=== PATIENT | male | born 1940 | race Caucasian/White ===

== ENCOUNTER 2017-10-10 15:47 | Inpatient (IN) | payer OTHER, MEDICARE ==
[~2017-10-10] VITALS: Ht 182.9 cm; Wt 102.2 kg
[2017-10-10 16:06] VITALS: BP_SYST 118; BP_SYST 222; BP_DIAS 106; BP_DIAS 108; PULSE 83; RESP 18; TEMP 97.6; O2SAT 99
[2017-10-10 17:05] VITALS: BP_SYST 195; BP_SYST 204; BP_DIAS 100; BP_DIAS 101; PULSE 70; RESP 18
[2017-10-10] MEDS ORDERED: cloNIDine HCL 0.1 MG TAB PO ONE (17:45)
[2017-10-10 17:49] LABS: BASOPHIL # 0.1 TH/MM3 (0-0.2); BASOPHIL % 1.5 % (0.0-2.0); EOSINOPHIL # 0.2 TH/MM3 (0-0.4); EOSINOPHIL % 4.7 % (0.0-4.0); HEMATOCRIT 34.4 % (39.0-51.0); HEMO FLAGS DIFF FINAL; LYMPH % 28.4 % (9.0-44.0); LYMPHOCYTE # 1.5 TH/MM3 (1.0-4.8); MEAN CELL VOLUME 84.1 FL (80.0-100.0); MEAN CORPUSCULAR HGB CONC 32.1 % (32.0-36.0); MONO % 7.5 % (0.0-8.0); NEUT % 57.9 % (16.0-70.0); PLATELET COUNT 247 TH/MM3 (150-450); RED BLOOD COUNT 4.09 MIL/MM3 (4.50-5.90); RED CELL DISTRIBUTION WIDTH 14.2 % (11.6-17.2); WHITE BLOOD COUNT 5.1 TH/MM3 (4.0-11.0)
[2017-10-10 18:05] LABS: ALT (GPT) 17 U/L (12-78); ANION GAP 8 MEQ/L (5-15); AST (GOT) 11 U/L (15-37); BICARBONATE 28.3 MEQ/L (21.0-32.0); BLOOD UREA NITROGEN 14 MG/DL (7-18); CHLORIDE 103 MEQ/L (98-107); GLOMERULAR FILTRATION RATE 47 ML/MIN (>89); SODIUM (NA) 139 MEQ/L (136-145)
[2017-10-10 18:06] LABS: ACETAMINOPHEN LESS THAN 2.0 MCG/ML (10.0-30.0)
[2017-10-10 18:07] LABS: ALCOHOL LESS THAN 3 MG/DL (0-5); ALKALINE PHOSPHATASE 138 U/L (45-117); TOTAL BILIRUBIN ADULT 0.3 MG/DL (0.2-1.0)
[2017-10-10] MEDS ORDERED: INSULIN HUMAN REGULAR 1,000 UNITS/10 ML VIAL SQ ONE (18:30)
--- NOTE | 2017-10-10 18:33 | PD ---
HPI Chief Complaint: Psychiatric Symptoms Time Seen by Provider: 16:44 Travel History International Travel<30 days: No Contact w/Intl Traveler<30days: No Traveled to known affect area: No History of Present Illness HPI 77-year-old male presents to the emergency department under [place] act. He has history of major depression and attempted suicide 3 weeks ago by cutting his wrist. He reports being suicidal at this time and his plan is to "crashed my car." He was brought in because he is concerned that he is unable to keep himself safe. He's been having ongoing suicidal ideations. Denies homicidal ideations. Denies auditory or visual hallucinations. Takes Effexor for depression. Denies illicit drug use, tobacco use, alcohol use. Has no emergent medical complaints at this time. Denies chest pain, shortness of breath, abdominal pain. Allergies to penicillins. Reports not taking his medications for the past few days for his high blood pressure and diabetes. No known relieving or aggravating factors. Has no other medical complaints. No other modifying factors or associated signs and symptoms. PFSH Past Medical History Hx Anticoagulant Therapy: Yes (aspirin) Arthritis: Yes Depression: Yes Heart Rhythm Problems: Yes (atrial fibrillation) Cardiovascular Problems: Yes (atrial fibrillation) Dementia: Yes Diabetes: Yes Patient Takes Glucophage: No Diminished Hearing: Yes (hearing aids bilaterally) Hypertension: Yes Respiratory: Yes (sleep apnea) Tetanus Vaccination: Unknown Influenza Vaccination: Yes Social History Alcohol Use: No Tobacco Use: No Substance Use: No Allergies-Medications (Allergen,Severity, Reaction): Coded Allergies: Penicillins (Verified Allergy, Intermediate, Edema, 10/10/17) Review of Systems Except as stated in HPI: all other systems reviewed are Neg Physical Exam Narrative GENERAL: Well-nourished, well-developed male patient, in no acute distress SKIN: Warm and dry. HEAD: Atraumatic. Normocephalic. EYES: Pupils equal and round. ENT: Mucosa pink and moist. NECK: Supple. Trachea midline. CARDIOVASCULAR: Irregular rate and rhythm. No murmur appreciated. RESPIRATORY: No accessory muscle use. Clear to auscultation. Breath sounds equal bilaterally. GASTROINTESTINAL: Abdomen soft, non-tender, nondistended. Hepatic and splenic margins not palpable. Bowel sounds are active 4 quadrants. MUSCULOSKELETAL: No obvious deformities. No clubbing. No cyanosis. No edema. BACK: No CVA tenderness. NEUROLOGICAL: Awake and alert. Oriented 3. No obvious cranial nerve deficits. Motor grossly within normal limits. Normal speech. Moves all extremities. 5/5 strength to all extremities. PSYCHIATRIC: No delusional thought processes. No hallucinations. Data Data Last Documented VS Vital Signs Date Time Temp Pulse Resp B/P (MAP) Pulse Ox O2 Delivery O2 Flow Rate FiO2 10/10/17 17:05 204/101 (135) 195/100 (131) 10/10/17 16:06 97.6 83 18 99 Room Air Orders Orders Diet Diabetic (10/10/17 Dinner) Complete Blood Count With Diff (10/10/17 16:46) Comprehensive Metabolic Panel (10/10/17 16:46) Psych Screen (10/10/17 16:46) Drug Screen, Random Urine (10/10/17 16:46) Alcohol (Ethanol) (10/10/17 16:46) Salicylates (Aspirin) (10/10/17 16:46) Tylenol (Acetaminophen) (10/10/17 16:46) Clonidine (Catapres) (10/10/17 17:45) Insulin Human Regular Inj (Novolin R Inj (10/10/17 18:30) Labs Laboratory Tests Test 10/10/17 17:07 10/10/17 17:15 White Blood Count 5.1 TH/MM3 Red Blood Count 4.09 MIL/MM3 Hemoglobin 11.0 GM/DL Hematocrit 34.4 % Mean Corpuscular Volume 84.1 FL Mean Corpuscular Hemoglobin 27.0 PG Mean Corpuscular Hemoglobin Concent 32.1 % Red Cell Distribution Width 14.2 % Platelet Count 247 TH/MM3 Mean Platelet Volume 7.5 FL Neutrophils (%) (Auto) 57.9 % Lymphocytes (%) (Auto) 28.4 % Monocytes (%) (Auto) 7.5 % Eosinophils (%) (Auto) 4.7 % Basophils (%) (Auto) 1.5 % Neutrophils # (Auto) 3.0 TH/MM3 Lymphocytes # (Auto) 1.5 TH/MM3 Monocytes # (Auto) 0.4 TH/MM3 Eosinophils # (Auto) 0.2 TH/MM3 Basophils # (Auto) 0.1 TH/MM3 CBC Comment DIFF FINAL Differential Comment Blood Urea Nitrogen 14 MG/DL Creatinine 1.45 MG/DL Random Glucose 392 MG/DL Total Protein 7.5 GM/DL Albumin 3.7 GM/DL Calcium Level 8.9 MG/DL Alkaline Phosphatase 138 U/L Aspartate Amino Transf (AST/SGOT) 11 U/L Alanine Aminotransferase (ALT/SGPT) 17 U/L Total Bilirubin 0.3 MG/DL Sodium Level 139 MEQ/L Potassium Level 4.0 MEQ/L Chloride Level 103 MEQ/L Carbon Dioxide Level 28.3 MEQ/L Anion Gap 8 MEQ/L Estimat Glomerular Filtration Rate 47 ML/MIN Salicylates Level LESS THAN 1.7 MG/DL Acetaminophen Level LESS THAN 2.0 MCG/ML Ethyl Alcohol Level LESS THAN 3 MG/DL Urine Opiates Screen NEG Urine Barbiturates Screen NEG Urine Amphetamines Screen NEG Urine Benzodiazepines Screen NEG Urine Cocaine Screen NEG Urine Cannabinoids Screen NEG MDM Medical Decision Making Medical Screen Exam Complete: Yes Emergency Medical Condition: Yes Medical Record Reviewed: Yes Differential Diagnosis Medical clearance for psychiatric evaluation, suicidal ideation, suicidal threat , depression Narrative Course Patient presents under [place] act. Patient has history of hypertension and diabetes. 1700: Blood pressure continues to be elevated; Clonidine 0.1mg ordered for elevated blood pressure. 1833: Serum glucose 392: 10 units regular insulin ordered. Patient presents under a [place] act. Physical examination and vital signs are essentially unremarkable. Patient has no medical complaints to report. Psych screen has been ordered. If the laboratory results are unremarkable, the patient will be medically cleared for psychiatric evaluation and disposition. Diagnosis Primary Impression: Medical clearance for psychiatric admission Condition: Stable Dalia Velasquez Oct 10, 2017 18:33
[2017-10-10] MEDS ORDERED: LANTUS2P (19:40)
[2017-10-10] MEDS ORDERED: LOSA50TA PO (19:40)
[2017-10-10] MEDS ORDERED: METO25TA3 PO (19:40)
[2017-10-10] MEDS ORDERED: XARE20TA PO (19:40)
[2017-10-10] MEDS ORDERED: MIRA3350 PO (19:40)
[2017-10-10] MEDS ORDERED: TERA5CAP3 PO (19:40)
[2017-10-10] MEDS ORDERED: LOVA20TA PO (19:40)
[2017-10-10] MEDS ORDERED: IRON1TAB6 (19:40)
[2017-10-10] MEDS ORDERED: MULT-65 PO (19:40)
[2017-10-10] MEDS ORDERED: VENL75XR PO (19:40)
[2017-10-10] MEDS ORDERED: VICT18IN SQ (19:40)
[2017-10-10] MEDS ORDERED: LISI40TA PO (19:40)
[2017-10-10] MEDS ORDERED: HUMA100I3 SQ (19:46)
[2017-10-10] MEDS ORDERED: hydrOXYzine HCL 50 MG TAB PO PRN (21:15)
[2017-10-10] MEDS ORDERED: DEXTROSE 50% IN WATER 50 ML VIAL(D50) IV PUSH PRN (21:15)
[2017-10-10] MEDS ORDERED: ALUMINUM/MAGNESIUM/SIMETH 30 ML CUP PO PRN (21:15)
[2017-10-10] MEDS ORDERED: MAGNESIUM HYDROXIDE SUSP 30 ML CUP PO PRN (21:15)
[2017-10-10] MEDS ORDERED: GLUCAGON 1 MG/ML VIAL OTHER PRN (21:15)
[2017-10-10] MEDS ORDERED: NICOTINE 21 MG/24 HR PATCH T-DERMAL PRN (21:15)
[2017-10-10] MEDS ORDERED: cloNIDine HCL 0.1 MG TAB PO PRN (21:30)
[2017-10-10 22:07] VITALS: BP 145/72; PULSE 57; RESP 17; TEMP 98.1; O2SAT 98
[2017-10-10] MEDS ORDERED: INSULIN ASPART 1,000 UNITS/10 ML VIAL SQ ONE (22:45)
[2017-10-10] MEDS ORDERED: hydrOXYzine HCL 25 MG TAB PO PRN (22:45)
[2017-10-10 22:55] VITALS: BP 167/82; PULSE 70; RESP 17; TEMP 98.1; O2SAT 98
[2017-10-11] MEDS: ACETAMINOPHEN 325 MG TAB PO PRN (05:45)
[2017-10-11 06:48] VITALS: BP 191/79; PULSE 56; RESP 18; TEMP 97.8; O2SAT 99
[2017-10-11 07:39] VITALS: BP 157/86; PULSE 88
[2017-10-11] MEDS: INSULIN ASPART SUPPLEMENTAL SCALE SQ SCH ×4 (08:00→22:07)
[2017-10-11 08:05] LABS: AUTOMATED NEUTROPHIL # 5.1 TH/MM3 (1.8-7.7); BASOPHIL # 0.1 TH/MM3 (0-0.2); BASOPHIL % 1.1 % (0.0-2.0); EOSINOPHIL # 0.3 TH/MM3 (0-0.4); EOSINOPHIL % 4.3 % (0.0-4.0); HEMATOCRIT 30.3 % (39.0-51.0); HEMO FLAGS DIFF FINAL; LYMPH % 21.1 % (9.0-44.0); LYMPHOCYTE # 1.6 TH/MM3 (1.0-4.8); MEAN CELL VOLUME 81.9 FL (80.0-100.0); MEAN CORPUSCULAR HEMOGLOBIN 28.8 PG (27.0-34.0); MEAN CORPUSCULAR HGB CONC 35.1 % (32.0-36.0); MONO % 7.4 % (0.0-8.0); NEUT % 66.1 % (16.0-70.0); PLATELET COUNT 236 TH/MM3 (150-450); RED BLOOD COUNT 3.69 MIL/MM3 (4.50-5.90); RED CELL DISTRIBUTION WIDTH 13.7 % (11.6-17.2); WHITE BLOOD COUNT 7.7 TH/MM3 (4.0-11.0)
[2017-10-11 08:36] LABS: ANION GAP 8 MEQ/L (5-15); AST (GOT) 12 U/L (15-37); BICARBONATE 26.8 MEQ/L (21.0-32.0); BLOOD UREA NITROGEN 16 MG/DL (7-18); CHLORIDE 104 MEQ/L (98-107); GLOMERULAR FILTRATION RATE 53 ML/MIN (>89); POTASSIUM 3.8 MEQ/L (3.5-5.1); SODIUM (NA) 139 MEQ/L (136-145)
[2017-10-11] MEDS: REMOVE OLD NICODERM (NICOTINE) PATCH T-DERMAL SCH (09:00)
[2017-10-11] MEDS: RIVAROXABAN 20 MG TAB PO SCH (09:00)
[2017-10-11] MEDS ORDERED: NON-FORMULARY DRUG (Lisinopril 40 MG) PO SCH (09:00)
[2017-10-11] MEDS ORDERED: NON-FORMULARY DRUG (Multiple Vitamin (Multi-Vitamin Daily) 1 TAB) PO SCH (09:00)
[2017-10-11 09:07] LABS: ALKALINE PHOSPHATASE 116 U/L (45-117); ALT (GPT) 17 U/L (12-78); HDL CHOLESTEROL 45.2 MG/DL (40.0-60.0); LDL CHOLESTEROL 97 MG/DL (0-99); TOTAL BILIRUBIN ADULT 0.4 MG/DL (0.2-1.0)
[2017-10-11] MEDS: TERAZOSIN HCL 5 MG CAP PO SCH (09:31)
[2017-10-11] MEDS: MULTIVITAMIN TAB PO SCH (09:31)
[2017-10-11] MEDS: LISINOPRIL 20 MG TAB PO SCH (09:31)
[2017-10-11] MEDS: METOPROLOL TARTRATE 25 MG TAB PO SCH ×2 (09:31→20:36)
[2017-10-11] MEDS: LOSARTAN 50 MG TAB PO SCH (09:31)
[2017-10-11] MEDS: POLYETHYLENE GLYCOL 17 GM PKG PO SCH (09:32)
[2017-10-11] MEDS: PRAVASTATIN SOD 20 MG TAB PO SCH (09:32)
[2017-10-11 11:28] LABS: HEMOGLOBIN A1a 2.3 %; HEMOGLOBIN A1b 2.5 %; HEMOGLOBIN Ao 77.4 %; HEMOGLOBIN LA1C 2.9 %; HEMOGLOBIN P3 5.5 %
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
--- NOTE | 2017-10-11 13:30 | PD.CONS ---
HPI Service [facility] Hospitalists Consult Requested By Primary Care Physician Unknown Diagnoses: History of Present Illness Admission Notes: This is a pleasant 77 y/o Male who came to ER as Ilir Ely, with history of Depression and attempted suicide 3 weeks ago by cutting his wrist. He reports being suicidal at this time and his plan is to "crashed my car." He was brought in because he is concerned that he is unable to keep himself safe. He's been having ongoing suicidal ideations. Denies homicidal ideations. Denied auditory or visual hallucinations. Takes Effexor for depression. Denies illicit drug use, tobacco use, alcohol use. Has no emergent medical complaints at this time. Denies chest pain, shortness of breath, abdominal pain. Allergies to penicillins. Reports not taking his medications for the past few days for his high blood pressure and diabetes. No known relieving or aggravating factors. Has no other medical complaints. No other modifying factors or associated signs and symptoms. As we know the patient has OA, Depression, Atrial Fibrillation, Dementia, DM II , Hard of hearing, Review of Systems Constitutional: DENIES: Fever, Chills, Change in appetite Endocrine: DENIES: Heat/cold intolerance Eyes: DENIES: Blurred vision, Eye pain Except as stated in HPI: all other systems reviewed are Neg Past Family Social History Allergies: Coded Allergies: Penicillins (Verified Allergy, Intermediate, Edema, 10/10/17) Past Medical History OA Depression Atrial Fibrillation Dementia DM II Hard of hearing, Reported Medications Reported Meds & Active Scripts Active Reported Humalog Kwikpen Pen Inj (Insulin Lispro (Human) Inj) 300 Unit/3 Ml Pen 1 Units SQ Victoza Inj (Liraglutide Inj) 18 Mg/3 Ml Pen 1.9 Mg SQ DAILY Lisinopril 40 Mg Tab 40 Mg PO DAILY Effexor XR 24 HR (Venlafaxine HCl) 75 Mg Cap 175 Mg PO DAILY Xarelto (Rivaroxaban) 20 Mg Tab 20 Mg PO DAILY Metoprolol Tartrate 25 Mg Tab 25 Mg PO BID Lovastatin 20 Mg Tab 20 Mg PO DAILY Miralax Powder (Polyethylene Glycol 3350 Powder) 17 Gm Powd 17 Gm PO DAILY Mix and dissolve one measuring cap-ful (17 grams) in water or juice. Multi-Vitamin Daily (Multiple Vitamin) 1 Tab Tab 1 Tab PO DAILY Losartan (Losartan Potassium) 50 Mg Tab 50 Mg PO DAILY Fe C Tab Plus 100-250-0.025-1 mg (Iron-Vitamin C-Vitamin B12-Fol) 100 Mg-250 Mg- 25 Mcg-1 Mg Tab DAILY Terazosin (Terazosin HCl) 5 Mg Cap 5 Mg PO DAILY Lantus Inj (Insulin Glargine) 100 Unit/Ml Inj HS Active Ordered Medications Current Medications Medications (Trade) Dose Ordered Sig/Robert Route Start Time Stop Time Status Last Admin (Cozaar) 50 mg DAILY PO 10/11/17 09:00 10/11/17 09:31 (Pravachol) 20 mg DAILY PO 10/11/17 09:00 10/11/17 09:32 (Lopressor) 25 mg BID PO 10/11/17 09:00 10/11/17 09:31 (Miralax) 17 gm DAILY PO 10/11/17 09:00 10/11/17 09:32 (Xarelto) 20 mg DAILY PO 10/11/17 09:00 10/11/17 09:00 (Hytrin) 5 mg DAILY PO 10/11/17 09:00 10/11/17 09:31 Non-Formulary Medication 1.9 mg DAILY SQ 10/11/17 09:00 UNV (D50w (Vial) Inj) 50 ml UNSCH PRN IV PUSH 10/10/17 21:15 (Glucagon Inj) 1 mg UNSCH PRN OTHER 10/10/17 21:15 (NovoLOG SUPPLEMENTAL SCALE) 1 ACHS SLIDING SCALE SQ 10/11/17 08:00 10/11/17 10:58 (Tylenol) 650 mg Q4H PRN PO 10/10/17 21:15 10/11/17 05:45 (Milk Of Magnesia Liq) 30 ml DAILY PRN PO 10/10/17 21:15 (Mag-Al Plus Susp Liq) 30 ml Q6H PRN PO 10/10/17 21:15 (Habitrol 21 Mg Patch.24 Hr) 1 patch DAILY PRN T-DERMAL 10/10/17 21:15 (Catapres) 0.1 mg Q8HR PRN PO 10/10/17 21:30 10/11/17 05:42 (Prinivil) 40 mg DAILY PO 10/11/17 09:00 10/11/17 09:31 Miscellaneous Information 1 DAILY T-DERMAL 10/11/17 09:00 (Theragran) 1 tab DAILY PO 10/11/17 09:00 10/11/17 09:31 (Atarax) 25 mg Q6H PRN PO 10/10/17 22:45 (Remeron) 15 mg HS PO 10/11/17 21:00 (Vitamin D3) 2,000 units DAILY PO 10/12/17 09:00 Social History Denies any toxic habits. Physical Exam Vital Signs Vital Signs Date Time Temp Pulse Resp B/P (MAP) Pulse Ox O2 Delivery O2 Flow Rate FiO2 10/11/17 07:39 88 157/86 (109) 10/11/17 06:48 97.8 56 18 191/79 (116) 99 10/10/17 22:55 98.1 70 17 167/82 (110) 98 10/10/17 22:33 10/10/17 22:07 98.1 57 17 145/72 (96) 98 10/10/17 17:05 70 18 204/101 (135) 195/100 (131) 10/10/17 16:06 97.6 83 18 222/106 (144) 99 Room Air 118/108 (111) Physical Exam GENERAL: This is a well-nourished, well-developed patient, in no apparent distress. SKIN: No rashes, ecchymoses or lesions. Cool and dry. HEAD: Atraumatic. Normocephalic. No temporal or scalp tenderness. EYES: Pupils equal round and reactive. Extraocular motions intact. No scleral icterus. No injection or drainage. ENT: Nose without bleeding, purulent drainage or septal hematoma. Throat without erythema, tonsillar hypertrophy or exudate. Uvula midline. Airway patent. NECK: Trachea midline. No JVD or lymphadenopathy. Supple, nontender, no meningeal signs. CARDIOVASCULAR: Regular rate and rhythm without murmurs, gallops, or rubs. RESPIRATORY: Clear to auscultation. Breath sounds equal bilaterally. No wheezes , rales, or rhonchi. GASTROINTESTINAL: Abdomen soft, non-tender, nondistended. No hepato-splenomegaly , or palpable masses. No guarding. MUSCULOSKELETAL: Extremities without clubbing, cyanosis, or edema. No joint tenderness, effusion, or edema noted. No calf tenderness. Negative Homans sign bilaterally. NEUROLOGICAL: Awake and alert. Cranial nerves II through XII intact. Motor and sensory grossly within normal limits. Five out of 5 muscle strength in all muscle groups. Normal speech. Laboratory Laboratory Tests Test 10/10/17 17:07 10/10/17 17:15 10/11/17 07:25 White Blood Count 5.1 7.7 Red Blood Count 4.09 3.69 Hemoglobin 11.0 10.6 Hematocrit 34.4 30.3 Mean Corpuscular Volume 84.1 81.9 Mean Corpuscular Hemoglobin 27.0 28.8 Mean Corpuscular Hemoglobin Concent 32.1 35.1 Red Cell Distribution Width 14.2 13.7 Platelet Count 247 236 Mean Platelet Volume 7.5 7.7 Neutrophils (%) (Auto) 57.9 66.1 Lymphocytes (%) (Auto) 28.4 21.1 Monocytes (%) (Auto) 7.5 7.4 Eosinophils (%) (Auto) 4.7 4.3 Basophils (%) (Auto) 1.5 1.1 Neutrophils # (Auto) 3.0 5.1 Lymphocytes # (Auto) 1.5 1.6 Monocytes # (Auto) 0.4 0.6 Eosinophils # (Auto) 0.2 0.3 Basophils # (Auto) 0.1 0.1 CBC Comment DIFF FINAL DIFF FINAL Differential Comment Blood Urea Nitrogen 14 16 Creatinine 1.45 1.31 Random Glucose 392 231 Total Protein 7.5 6.6 Albumin 3.7 3.2 Calcium Level 8.9 8.4 Alkaline Phosphatase 138 116 Aspartate Amino Transf (AST/SGOT) 11 12 Alanine Aminotransferase (ALT/SGPT) 17 17 Total Bilirubin 0.3 0.4 Sodium Level 139 139 Potassium Level 4.0 3.8 Chloride Level 103 104 Carbon Dioxide Level 28.3 26.8 Anion Gap 8 8 Estimat Glomerular Filtration Rate 47 53 Salicylates Level LESS THAN 1.7 Acetaminophen Level LESS THAN 2.0 Ethyl Alcohol Level LESS THAN 3 Urine Opiates Screen NEG Urine Barbiturates Screen NEG Urine Amphetamines Screen NEG Urine Benzodiazepines Screen NEG Urine Cocaine Screen NEG Urine Cannabinoids Screen NEG Hemoglobin A1c 8.9 Triglycerides Level 157 Cholesterol Level 174 LDL Cholesterol 97 HDL Cholesterol 45.2 Cholesterol/HDL Ratio 3.84 Vitamin B12 Level 366 25-Hydroxy Vitamin D Total 20.4 Thyroid Stimulating Hormone 3rd Gen 0.698 Result Diagram: 10/11/1725 10/11/1725 Mohamud lOivo MD Oct 11, 2017 13:30
[2017-10-11] MEDS: amLODIPine BESYLATE 5 MG TAB PO SCH (17:00)
[2017-10-11] MEDS: MIRTAZAPINE 15 MG TAB PO SCH (20:36)
[2017-10-11] MEDS: INSULIN DETEMIR 100 UNITS/ML VIAL SQ SCH (22:07)
[2017-10-12 05:00] VITALS: BP 137/94; PULSE 82; RESP 20; TEMP 98.5; O2SAT 98
[2017-10-12] MEDS: INSULIN ASPART SUPPLEMENTAL SCALE SQ SCH ×4 (08:00→21:00)
[2017-10-12] MEDS ORDERED: CHOLECALCIFEROL (VIT D3) 1000 UNIT TAB PO SCH (09:00)
[2017-10-12] MEDS: LIRAGLUTIDE SQ SCH (09:00)
[2017-10-12] MEDS: INSULIN DETEMIR 100 UNITS/ML VIAL SQ SCH ×2 (09:00→21:11)
[2017-10-12] MEDS ORDERED: HYDROCHLOROTHIAZIDE 12.5 MG CAP PO SCH (09:00)
[2017-10-12] MEDS: REMOVE OLD NICODERM (NICOTINE) PATCH T-DERMAL SCH (09:00)
[2017-10-12] MEDS: LISINOPRIL 20 MG TAB PO SCH (09:36)
[2017-10-12] MEDS: TERAZOSIN HCL 5 MG CAP PO SCH (09:36)
[2017-10-12] MEDS: CHOLECALCIFEROL (VIT D3) 1000 UNIT TAB PO SCH (09:36)
[2017-10-12] MEDS: MULTIVITAMIN TAB PO SCH (09:36)
[2017-10-12] MEDS: PRAVASTATIN SOD 20 MG TAB PO SCH (09:36)
[2017-10-12] MEDS: amLODIPine BESYLATE 5 MG TAB PO SCH (09:37)
[2017-10-12] MEDS: RIVAROXABAN 20 MG TAB PO SCH (09:37)
[2017-10-12] MEDS: METOPROLOL TARTRATE 25 MG TAB PO SCH ×2 (09:37→21:11)
[2017-10-12] MEDS: LOSARTAN 50 MG TAB PO SCH (09:37)
[2017-10-12] MEDS: POLYETHYLENE GLYCOL 17 GM PKG PO SCH (09:38)
--- NOTE | 2017-10-12 09:55 | PD.TTN ---
Patient Problems 1. Discharge planning 2. Medication compliance 3. Knowledge deficit 4. Lack of coping skills Progress Toward Goals Provider Present: Dr. Ayesha Rubin Provider Input: Dr. Rubin's treatment team met to discuss patient's treatment plan, discharge and medication. Patient was started on medication for his depressioin. Once patient stablizes will be discharged home. OT evaluation has been ordered. Nurse(s) Input: Patient's nurse Any reports patient is seclusive, depressed, denies suicidal and homicidal ideation. experiencing sleep distrubance. Slow to engage. No behavioral issues Psychiatric Counselors Present: Cara Gauthier [facility] Psych Therapist Input: Patient seen today. Patient presents depressed, sad, affect appropriate. Patient states he is still suicidal. Patient denies homicidal ideation. Patient makes fair eye contact. Patient reports not sleeping well. Patient is slow to engage and was encouraged to get a shower. Patient is not participating in any groups. Patient does not present with internal stimulation or with any delusional content. [facility]. pateint was encourage to participate in groups and to reach out to his family. Group Spec/RT/OT/CHRISTIANSON Present: Sean Pereira, SAMY Group Spec/RT/OT/CHRISTIANSON Input: Patient is new. Patient has complex personnal issues. Has OT evaluation ordered. Patient attends groups. Cara Gauthier [facility] Oct 12, 2017 09:55
--- NOTE | 2017-10-12 10:51 | HHI.PR ---
Subjective Remarks Follow up on patient with atrial fibrillation, DM and dementia. Patient seen and examined. Patient denies any chest pain, palpitations, dizziness or lightheadedness. He denies any dyspnea or cough. Denies any nausea, vomiting or abdominal pain. Objective Vitals Vital Signs Date Time Temp Pulse Resp B/P (MAP) Pulse Ox O2 Delivery O2 Flow Rate FiO2 10/12/17 05:00 98.5 82 20 137/94 (108) 98 Result Diagram: 10/11/1772410/11/17724 Objective Remarks GENERAL: This is a well-nourished, well-developed male patient, in no apparent distress. Awake and alert. Lying in hospital bed. SKIN: Warm and dry. HEAD: Atraumatic. Normocephalic. EYES: Extraocular motions intact. No scleral icterus. No injection or drainage. ENT: Nose without bleeding or purulent drainage. Airway patent. MMM. NECK: Trachea midline. CARDIOVASCULAR: Regular rate and rhythm without murmurs, gallops, or rubs. RESPIRATORY: Clear to auscultation. Breath sounds equal bilaterally. No wheezes , rales, or rhonchi. GASTROINTESTINAL: Abdomen soft, non-tender, nondistended. No hepato-splenomegaly , or palpable masses. No guarding. MUSCULOSKELETAL: Extremities without clubbing or cyanosis. (+)trace bilateral LE edema. NEUROLOGICAL: Awake and alert. Able to move all extremities. Nonfocal. Normal speech. PSYCHIATRIC: Appropriate mood and affect. Calm and cooperative. Medications and IVs Current Medications Medications (Trade) Dose Ordered Sig/Robert Route Start Time Stop Time Status Last Admin (Cozaar) 50 mg DAILY PO 10/11/17 09:00 10/12/17 09:37 (Pravachol) 20 mg DAILY PO 10/11/17 09:00 10/12/17 09:36 (Lopressor) 25 mg BID PO 10/11/17 09:00 10/12/17 09:37 (Miralax) 17 gm DAILY PO 10/11/17 09:00 10/12/17 09:38 (Xarelto) 20 mg DAILY PO 10/11/17 09:00 10/12/17 09:37 (Hytrin) 5 mg DAILY PO 10/11/17 09:00 10/12/17 09:36 Patient Own Medication PT OWN MED: (Liraglutide ... DAILY SQ 10/12/17 09:00 (D50w (Vial) Inj) 50 ml UNSCH PRN IV PUSH 10/10/17 21:15 (Glucagon Inj) 1 mg UNSCH PRN OTHER 10/10/17 21:15 (Tylenol) 650 mg Q4H PRN PO 10/10/17 21:15 10/11/17 05:45 (Milk Of Magnesia Liq) 30 ml DAILY PRN PO 10/10/17 21:15 (Mag-Al Plus Susp Liq) 30 ml Q6H PRN PO 10/10/17 21:15 (Habitrol 21 Mg Patch.24 Hr) 1 patch DAILY PRN T-DERMAL 10/10/17 21:15 (Catapres) 0.1 mg Q8HR PRN PO 10/10/17 21:30 10/11/17 05:42 (Prinivil) 40 mg DAILY PO 10/11/17 09:00 10/12/17 09:36 Miscellaneous Information 1 DAILY T-DERMAL 10/11/17 09:00 (Theragran) 1 tab DAILY PO 10/11/17 09:00 10/12/17 09:36 (Atarax) 25 mg Q6H PRN PO 10/10/17 22:45 (Remeron) 15 mg HS PO 10/11/17 21:00 10/11/17 20:36 (Microzide) 12.5 mg DAILY PO 10/12/17 09:00 10/12/17 09:37 (Norvasc) 5 mg DAILY PO 10/11/17 17:00 10/12/17 09:37 (NovoLOG SUPPLEMENTAL SCALE) 1 ACHS SLIDING SCALE SQ 10/11/17 21:00 10/12/17 11:32 (Levemir Inj) 10 units Q12HR SQ 10/11/17 21:00 10/12/17 09:00 (Vitamin D3) 2,000 units DAILY PO 10/12/17 09:00 10/12/17 09:36 A/P Assessment and Plan 77 y/o Male who came to ER as Hazel Act, with history of Depression and attempted suicide 3 weeks ago by cutting his wrist mid with ongoing suicidal ideations asked to be seen in consultation by hospitalist service for medical management of osteoarthritis, atrial fibrillation and diabetes. Dementia Depression Suicidal ideation - Management per psychiatric team Atrial fibrillation - rate controlled - Continue patient on metoprolol 25 mg by mouth twice a day and Xarelto 20mg daily - monitor HR Hypertension - Continue patient on Lisinopril 40mg daily, Norvasc 5mg daily, as well as metoprolol as stated above - Discontinue Losartan - continue to monitor BP and adjust treatment accordingly FAUSTINA on suspected CKD - unknown creatinine baseline - d/c HCTZ, may need to hold ACEI - encourage fluid intake - avoid nephrotoxic agents - may need to consider decreased Xarelto dose - BMP in am DM, type 2 - accucheck and medium ISS - BS low 300. Increase Levemir to 15u BID - HgbA1c 8.9 Vitamin D deficiency - Patient's vitamin D level 20.4 - Begin patient on by mouth vitamin D supplementation - patient will need to follow up with PCP for monitoring DVT prophylaxis - patient is ambulatory Discussed with patient, nursing staff and Milla Rincon Oct 12, 2017 10:51
--- NOTE | 2017-10-12 12:49 | HHI.PYPN ---
Subjective Chief Complaint: Depression Remarks Patient seen and examined with nurse. Chart reviewed. Case discussed in treatment team with counselor and occupational therapist. Per nursing staff, patient remains somewhat seclusive and depressed. On my examination today, the patient says that he is not having a good day. He remains fairly dysphoric and anhedonic. He denies any suicidal ideation. Sleep fair overnight. Denies side effects from medications. Complains of generalized musculoskeletal pain, chronic. No other physical complaints. Review of Systems Except as stated in HPI: all other systems reviewed are Neg Mental Status Examination Appearance: Disheveled (somewhat improved today) Consciousness: Alert Orientation: x4 Motor Activity: Normal gait, Other (remains a little bit psychomotor slowed) Speech: Slow (mild) Language: Adequate Fund of Knowledge: Adequate Attention and Concentration: Adequate Memory: Impaired (perhaps some mild impairment. Registration 3 out of 3 and recall 2 out of 3 at 3 minutes. Current president = "Ever" and gives the list of preceding presidents as Garry then Ashraf.) Mood: Other (depressed) Affect: Blunt Thought Process & Associations: Other (somewhat slowed but linear) Thought Content: Appropriate Hallucination Type: None Delusion Type: None Suicidal Ideation: No Suicidal Plan: No Suicidal Intention: No Homicidal Ideation: No Homicidal Plan: No Homicidal Intention: No Insight: Fair Judgment: Adequate (fair) Results Labs Item Value Date Time White Blood Count 7.7 TH/MM3 # 10/11/17 0725 Hemoglobin 10.6 GM/DL L 10/11/17 0725 Platelet Count 236 TH/MM3 10/11/17 0725 Estimat Glomerular Filtration Rate 53 ML/MIN L 10/11/17 0725 25-Hydroxy Vitamin D Total 20.4 ng/ML L 10/11/17 0725 Thyroid Stimulating Hormone 3rd Gen 0.698 uIU/ML 10/11/17 0725 Vitamin B12 Level 366 PG/ML 10/11/17 0725 Labs reviewed. Anemia fairly stable. GFR somewhat improved. TSH within normal limits as is B12. Vitamin D level low and the patient has been started on supplement. Vitals/IOs Vital Signs Date Time Temp Pulse Resp B/P (MAP) Pulse Ox O2 Delivery O2 Flow Rate FiO2 10/12/17 05:00 98.5 82 20 137/94 (108) 98 10/10/17 16:06 Room Air Assessment & Plan Problem List: (1) Major depressive disorder, recurrent severe without psychotic features ICD Codes: F33.2 - Major depressive disorder, recurrent severe without psychotic features Assessment & Plan Continue Remeron as ordered for low mood. To consider titrating this agent to 30 mg at bedtime over the weekend. Continue to monitor on the inpatient unit. I have encouraged participation in unit activities and groups. Hospitalist input noted and appreciated. Continue other medications and care as ordered. Justification for Cont. Inpt. Monitoring for impairment in safety, none noted. Risk for decompensation in less restrictive environment. Discharge Planning Plan for home with outpatient follow-up, likely middle or end of next week. Case discussed with counselor. Request HC Surrog/Guard Advoc?: No Aayush Rubin MD Oct 12, 2017 12:49
[2017-10-12 17:35] VITALS: BP 156/70; PULSE 81; RESP 20; TEMP 93.5; O2SAT 98
[2017-10-12] MEDS: MIRTAZAPINE 15 MG TAB PO SCH (21:11)
[2017-10-13 06:03] VITALS: BP 118/69; PULSE 99; RESP 18; TEMP 98.7; O2SAT 95
[2017-10-13] MEDS: INSULIN ASPART SUPPLEMENTAL SCALE SQ SCH ×4 (08:00→21:47)
[2017-10-13] MEDS: INSULIN ASPART 1,000 UNITS/10 ML VIAL SQ SCH ×3 (08:00→16:18)
[2017-10-13] MEDS: REMOVE OLD NICODERM (NICOTINE) PATCH T-DERMAL SCH (09:00)
[2017-10-13] MEDS ORDERED: LISINOPRIL 20 MG TAB PO SCH (09:00)
[2017-10-13] MEDS: LIRAGLUTIDE SQ SCH (09:00)
[2017-10-13] MEDS: CHOLECALCIFEROL (VIT D3) 1000 UNIT TAB PO SCH (09:17)
[2017-10-13] MEDS: POLYETHYLENE GLYCOL 17 GM PKG PO SCH (09:17)
[2017-10-13] MEDS: METOPROLOL TARTRATE 25 MG TAB PO SCH ×2 (09:17→21:00)
[2017-10-13] MEDS: MULTIVITAMIN TAB PO SCH (09:17)
[2017-10-13] MEDS: PRAVASTATIN SOD 20 MG TAB PO SCH (09:18)
[2017-10-13] MEDS: TERAZOSIN HCL 5 MG CAP PO SCH (09:18)
[2017-10-13] MEDS: amLODIPine BESYLATE 5 MG TAB PO SCH (09:18)
[2017-10-13] MEDS: RIVAROXABAN 20 MG TAB PO SCH (09:18)
[2017-10-13] MEDS: INSULIN DETEMIR 100 UNITS/ML VIAL SQ SCH (09:23)
--- NOTE | 2017-10-13 11:22 | HHI.PR ---
Subjective Remarks Follow up on patient with atrial fibrillation, DM and dementia. Patient seen and examined. Patient reports he doesn't feel "worth a darn" but does not give any specifics. Denies any fever, chills or cough. Denies any dizziness, lightheadedness, palpitations, nausea, vomiting, shortness of breath, chest pain or abdominal pain. Objective Vitals Vital Signs Date Time Temp Pulse Resp B/P (MAP) Pulse Ox O2 Delivery O2 Flow Rate FiO2 10/13/17 06:03 98.7 99 18 118/69 (85) 95 10/12/17 17:35 93.5 81 20 156/70 (98) 98 I/O 10/12/17 10/12/17 10/12/17 10/13/17 10/13/17 10/13/17 06:59 14:59 22:59 06:59 14:59 22:59 Intake Total 360 ml Balance 360 ml Intake Oral 360 ml Result Diagram: 10/11/1772410/11/17724 Objective Remarks GENERAL: This is a well-nourished, well-developed male patient, in no apparent distress. Awake and alert. Lying in hospital bed. SKIN: Warm and dry. HEAD: Atraumatic. Normocephalic. EYES: Extraocular motions intact. No scleral icterus. No injection or drainage. ENT: Nose without bleeding or purulent drainage. Airway patent. MMM. NECK: Trachea midline. CARDIOVASCULAR: Regular rate and rhythm without murmurs, gallops, or rubs. RESPIRATORY: Clear to auscultation. Breath sounds equal bilaterally. No wheezes , rales, or rhonchi. GASTROINTESTINAL: Abdomen soft, non-tender, nondistended. No hepato-splenomegaly , or palpable masses. No guarding. MUSCULOSKELETAL: Extremities without clubbing or cyanosis. (+)trace bilateral LE edema. NEUROLOGICAL: Awake and alert. Able to move all extremities. Nonfocal. Normal speech. PSYCHIATRIC: Calm and cooperative. Medications and IVs Current Medications Medications (Trade) Dose Ordered Sig/Robert Route Start Time Stop Time Status Last Admin (Pravachol) 20 mg DAILY PO 10/11/17 09:00 10/13/17 09:18 (Lopressor) 25 mg BID PO 10/11/17 09:00 10/13/17 09:17 (Miralax) 17 gm DAILY PO 10/11/17 09:00 10/13/17 09:17 (Xarelto) 20 mg DAILY PO 10/11/17 09:00 10/13/17 09:18 (Hytrin) 5 mg DAILY PO 10/11/17 09:00 10/13/17 09:18 Patient Own Medication PT OWN MED: (Liraglutide ... DAILY SQ 10/12/17 09:00 (D50w (Vial) Inj) 50 ml UNSCH PRN IV PUSH 10/10/17 21:15 (Glucagon Inj) 1 mg UNSCH PRN OTHER 10/10/17 21:15 (Tylenol) 650 mg Q4H PRN PO 10/10/17 21:15 10/11/17 05:45 (Milk Of Magnesia Liq) 30 ml DAILY PRN PO 10/10/17 21:15 (Mag-Al Plus Susp Liq) 30 ml Q6H PRN PO 10/10/17 21:15 (Habitrol 21 Mg Patch.24 Hr) 1 patch DAILY PRN T-DERMAL 10/10/17 21:15 (Catapres) 0.1 mg Q8HR PRN PO 10/10/17 21:30 10/11/17 05:42 Miscellaneous Information 1 DAILY T-DERMAL 10/11/17 09:00 (Theragran) 1 tab DAILY PO 10/11/17 09:00 10/13/17 09:17 (Atarax) 25 mg Q6H PRN PO 10/10/17 22:45 10/12/17 21:11 (Remeron) 15 mg HS PO 10/11/17 21:00 10/12/17 21:11 (Norvasc) 5 mg DAILY PO 10/11/17 17:00 10/13/17 09:18 (NovoLOG SUPPLEMENTAL SCALE) 1 ACHS SLIDING SCALE SQ 10/11/17 21:00 10/12/17 21:00 (Vitamin D3) 2,000 units DAILY PO 10/12/17 09:00 10/13/17 09:17 (Prinivil) 40 mg DAILY PO 10/13/17 09:00 10/13/17 09:18 (Levemir Inj) 15 units Q12HR SQ 10/12/17 21:00 10/13/17 09:23 (NovoLOG INJ) 2 units TIDAC SQ 10/13/17 08:00 A/P Assessment and Plan 77 y/o Male who came to ER as Ilir Ely, with history of Depression and attempted suicide 3 weeks ago by cutting his wrist mid with ongoing suicidal ideations asked to be seen in consultation by hospitalist service for medical management of osteoarthritis, atrial fibrillation and diabetes. Dementia Depression Suicidal ideation - Management per psychiatric team - encouraged ambulation. PT with no home PT recommendations. Atrial fibrillation - rate controlled - Continue patient on metoprolol 25 mg by mouth twice a day and Xarelto 20mg daily - monitor HR Hypertension - Patient on Lisinopril 40mg daily, Norvasc 5mg daily, as well as metoprolol as stated above. Hold ACEI due to FAUSTINA. increase Norvasc dose to 10mg daily. - continue to monitor BP and adjust treatment accordingly FAUSTINA on suspected CKD - unknown creatinine baseline - Hold ACEI - encourage fluid intake - avoid nephrotoxic agents - may need to consider decreased Xarelto dose - BMP in am/labs pending DM, type 2 - accucheck and low dose ISS - BS running 330s. Increase Levemir to 20u BID. Add preprandial Novolog 2u TID. - HgbA1c 8.9 Vitamin D deficiency - Patient's vitamin D level 20.4 - Begin patient on by mouth vitamin D supplementation - patient will need to follow up with PCP for monitoring DVT prophylaxis - patient is ambulatory - on Xarelto Discussed with patient, nursing staff and Milla Rincon Oct 13, 2017 11:22
[2017-10-13 11:52] LABS: BICARBONATE 26.6 MEQ/L (21.0-32.0)
--- NOTE | 2017-10-13 14:07 | HHI.PYPN ---
Subjective Chief Complaint: Depression Remarks Patient was seen and case discussed with nursing. Patient is pleasant but quite guarded and hypoverbal. Instead of answering questions patient makes various jokes. He denies suicidal or homicidal ideation intent or plan. He was seen in the dayroom and appears to be more social on the unit. Says he was irritable today because she could not get a donut Mental Status Examination Appearance: Disheveled (somewhat improved today) Consciousness: Alert Orientation: x4 Motor Activity: Normal gait, Other (remains a little bit psychomotor slowed) Speech: Slow (mild) Language: Adequate Fund of Knowledge: Adequate Attention and Concentration: Adequate Memory: Impaired (perhaps some mild impairment. Registration 3 out of 3 and recall 2 out of 3 at 3 minutes. Current president = "Eevr" and gives the list of preceding presidents as Garry then Ashraf.) Mood: Other (depressed) Affect: Blunt Thought Process & Associations: Other (somewhat slowed but linear) Thought Content: Appropriate Hallucination Type: None Delusion Type: None Suicidal Ideation: No Suicidal Plan: No Suicidal Intention: No Homicidal Ideation: No Homicidal Plan: No Homicidal Intention: No Insight: Fair Judgment: Adequate (fair) Results Labs Test 10/13/17 09:57 Blood Urea Nitrogen 26 MG/DL Creatinine 1.54 MG/DL Random Glucose 324 MG/DL Calcium Level 8.6 MG/DL Sodium Level 138 MEQ/L Potassium Level 4.0 MEQ/L Chloride Level 104 MEQ/L Carbon Dioxide Level 26.6 MEQ/L Anion Gap 7 MEQ/L Estimat Glomerular Filtration Rate 44 ML/MIN Vitals/IOs Vital Signs Date Time Temp Pulse Resp B/P (MAP) Pulse Ox O2 Delivery O2 Flow Rate FiO2 10/13/17 06:03 98.7 99 18 118/69 (85) 95 10/10/17 16:06 Room Air Intake and Output 10/13/17 10/13/17 10/14/17 08:00 16:00 00:00 Intake Total 360 ml Balance 360 ml Assessment & Plan Problem List: (1) Major depressive disorder, recurrent severe without psychotic features ICD Codes: F33.2 - Major depressive disorder, recurrent severe without psychotic features Assessment & Plan Continue current treatment plan Justification for Cont. Inpt. Patient would decompensate in a less restrictive setting Request HC Surrog/Guard Advoc?: No Addison Sr DO Oct 13, 2017 14:07
[2017-10-13 18:30] VITALS: BP 139/62; PULSE 76; RESP 18; TEMP 98.7; O2SAT 98
[2017-10-13] MEDS ORDERED: INSULIN DETEMIR 100 UNITS/ML VIAL SQ SCH (21:00)
[2017-10-13] MEDS: MIRTAZAPINE 15 MG TAB PO SCH (21:46)
[2017-10-14 06:03] VITALS: BP 147/70; PULSE 72; RESP 17; TEMP 98.2; O2SAT 96
[2017-10-14] MEDS: LIRAGLUTIDE SQ SCH (07:07)
--- NOTE | 2017-10-14 07:36 | HHI.PR ---
Subjective Remarks Patient appears not in acute distress. He says he feels tired as nausea unable to eat. No urinary complaints no fever or chills. No abdominal pain. No back pains. Objective Vitals Vital Signs Date Time Temp Pulse Resp B/P (MAP) Pulse Ox O2 Delivery O2 Flow Rate FiO2 10/14/17 06:03 98.2 72 17 147/70 (95) 96 10/13/17 18:30 98.7 76 18 139/62 (87) 98 I/O 10/13/17 10/13/17 10/13/17 10/14/17 10/14/17 10/14/17 07:00 15:00 23:00 07:00 15:00 23:00 Intake Total 746 ml 0 ml Balance 746 ml 0 ml Intake Oral 746 ml 0 ml # Voids 1 # Bowel Movements 0 Result Diagram: 10/11/17 0725 10/13/17 0957 Objective Remarks GENERAL: This is a well-nourished, well-developed male patient, in no apparent distress. Awake and alert. Lying in hospital bed. CARDIOVASCULAR: Regular rate and rhythm without murmurs, gallops, or rubs. RESPIRATORY: Clear to auscultation. Breath sounds equal bilaterally. No wheezes , rales, or rhonchi. GASTROINTESTINAL: Abdomen soft, non-tender, nondistended. No hepato-splenomegaly , or palpable masses. No guarding. MUSCULOSKELETAL: Extremities without clubbing or cyanosis. (+)trace bilateral LE edema. NEUROLOGICAL: Awake and alert. Able to move all extremities. Nonfocal. Normal speech. PSYCHIATRIC: Calm and cooperative. A/P Assessment and Plan 77 y/o Male who came to ER as [place], with history of Depression and attempted suicide 3 weeks ago by cutting his wrist mid with ongoing suicidal ideations asked to be seen in consultation by hospitalist service for medical management of osteoarthritis, atrial fibrillation and diabetes. Dementia Depression Suicidal ideation - Management per psychiatric team - encouraged ambulation. PT with no home PT recommendations. Atrial fibrillation - rate controlled - Continue patient on metoprolol 25 mg by mouth twice a day and Xarelto 20mg daily - monitor HR Hypertension - Patient on Lisinopril 40mg daily, Norvasc 5mg daily, as well as metoprolol as stated above. Hold ACEI due to FAUSTINA. increase Norvasc dose to 10mg daily. - continue to monitor BP and adjust treatment accordingly FAUSTINA on suspected CKD. However noted worsening kidney function. Check UA, do US kidney, consult nephrology - unknown creatinine baseline - Hold ACEI - encourage fluid intake - avoid nephrotoxic agents - may need to consider decreased Xarelto dose DM, type 2, uncontrolled A1c 8.9 - accucheck and low dose ISS - BS running 200s. Increase Levemir to 22U BID. Continue preprandial Novolog 2u TID. - HgbA1c 8.9 Vitamin D deficiency - Patient's vitamin D level 20.4 - Begin patient on by mouth vitamin D supplementation - patient will need to follow up with PCP for monitoring DVT prophylaxis - patient is ambulatory - on Xarelto Discussed with patient, nurse Kesha Lopez MD Oct 14, 2017 07:36
[2017-10-14] MEDS: INSULIN ASPART SUPPLEMENTAL SCALE SQ SCH ×4 (08:00→20:52)
[2017-10-14] MEDS: RIVAROXABAN 20 MG TAB PO SCH (08:07)
[2017-10-14] MEDS: CHOLECALCIFEROL (VIT D3) 1000 UNIT TAB PO SCH (08:08)
[2017-10-14] MEDS: TERAZOSIN HCL 5 MG CAP PO SCH (08:08)
[2017-10-14] MEDS: INSULIN DETEMIR 100 UNITS/ML VIAL SQ SCH ×2 (08:08→20:52)
[2017-10-14] MEDS: POLYETHYLENE GLYCOL 17 GM PKG PO SCH (08:08)
[2017-10-14] MEDS: METOPROLOL TARTRATE 25 MG TAB PO SCH ×2 (08:08→20:51)
[2017-10-14] MEDS: PRAVASTATIN SOD 20 MG TAB PO SCH (08:08)
[2017-10-14] MEDS: MULTIVITAMIN TAB PO SCH (08:08)
[2017-10-14] MEDS: REMOVE OLD NICODERM (NICOTINE) PATCH T-DERMAL SCH (08:09)
[2017-10-14 10:12] LABS: BICARBONATE 26.7 MEQ/L (21.0-32.0)
[2017-10-14 10:13] LABS: BLOOD, URINE NEG (NEG); COMMENT (UR) CULT NOT INDICATED; CULTURE IF INDICATED CULT NOT INDICATED; GLUCOSE,URINE 1000 mg/dL (NEG); KETONE, URINE NEG (NEG); MUCUS URINE FEW /lpf (OCC); NITRITE,URINE NEG (NEG); PH, URINE 5.5 (5.0-8.5); URINE COLOR YELLOW (YELLW/STRAW)
--- NOTE | 2017-10-14 10:45 | RADRPT ---
EXAM DATE/TIME: 10/14/2017 08:29 [facility] COMPARISON: No previous studies available for comparison. INDICATIONS : Increased BUN/creatinine. MEDICAL HISTORY : Dementia. Arthritis. Seizures. HTN. Afib. Sleep apena. Diabetes. Depression. SURGICAL HISTORY : Right ankle surgery. Right rotator cuff repair. ENCOUNTER: Initial ACUITY: 1 day PAIN SCORE: 0/10 LOCATION: Bilateral flank MEASUREMENTS: RIGHT KIDNEY: 11.6 x 6.3 x 5.2 cm LEFT KIDNEY: 13.1 x 6.1 x 6.7 cm COMPLETE APPROPRIATE ITEMS PRE PROCEDURE: ID x 2: Complete NameDate of BirthPatient Name Band Education: Nurse/Technologist explained procedure to patient/family. Patient/family demonstrates understanding of procedure. FINDINGS: RIGHT KIDNEY: Increased cortical echogenicity. Multiple renal cortical cysts with the largest in the lower pole chace suring 4.3 x 3.9 x 3.5 cm. LEFT KIDNEY: Increased cortical echogenicity. Multiple renal cortical cyst on the largest in the lower pole measur ing 5.8 x 6.6 x 6.3 cm BLADDER: Within normal limits given the degree of distension. CONCLUSION: 1. Increased cortical echogenicity with preserved size may be indicative of acute medical renal disea se bilaterally. 2. Multiple bilateral renal cortical cysts with the largest cysts on each side described above. 3. Otherwise negative. No stones or hydronephrosis. Tenzin Domingo MD on October 14, 2017 at 10:38 Board Certified Radiologist. This report was verified electronically.
--- NOTE | 2017-10-14 12:01 | MB ---
cc: AALIYAH GUTIERREZ MD DATE OF CONSULTATION: 10/14/2017 REASON FOR CONSULTATION: Elevated BUN and creatinine for evaluation. HISTORY OF PRESENT ILLNESS This is a 77-year-old male with past medical history of depression, hypertension, hyperlipidemia and diabetes mellitus, prostatic hypertrophy, possibly chronic kidney disease, was admitted with a diagnosis of depression in the psych unit. I was called to see the patient because of elevated BUN and creatinine. The patient denies any known history of renal disease. His creatinine on admission was 1.45, range is 1.3 to 1.5. He denies any nausea or vomiting. There is no history of diarrhea. No dysuria, hematuria. He does not remember if he was taking any nonsteroidal anti-inflammatory drugs. There is no history of renal stone. PAST MEDICAL HISTORY Hypertension, diabetes mellitus, hyperlipidemia, prostatic hypertrophy, possible chronic kidney disease. PAST SURGICAL HISTORY None reported. REVIEW OF SYSTEMS There is no history of fever. No sore throat. No headache, dizziness or blurring of vision. The patient's appetite is not very good. He does not have any nausea, vomiting. No history of diarrhea. No dysuria, hematuria or difficulty passing urine. SOCIAL HISTORY There is no history of smoking or alcoholism. FAMILY HISTORY: Noncontributory. ALLERGIES ALLERGY TO PENICILLIN. MEDICATIONS Currently he is on: 1. Metoprolol 25 mg b.i.d. 2. Pravastatin 20 mg once a day. 3. MiraLax 17 grams daily. 4. Xarelto 20 milligrams daily. 5. Prazosin 5 milligrams once a day. 6. Theragran one tablet daily. 7. Vitamin D3 2000 units once a day. 8. Amlodipine 10 milligrams once a day. 9. Amiodarone 15 milligrams q hs. 10. Insulin Detemir 22 units q.12 h. 11. Insulin aspart sliding scale. 12. Nicotine patch. 13. Clonidine as needed. PHYSICAL EXAMINATION: The patient is awake, alert. He is not in acute distress. Last blood pressure 140/70. His blood pressure was quite elevated on admission, temperature is 98.2, oxygen saturation 96%. HEENT: Pupils are mid constricted. Nonicteric. Conjunctiva pale. Neck: Supple. JVD is not elevated. Lungs: The patient has bilateral good air entry with occasional wheezing. Heart: S1-S2, regular rhythm. Abdomen is soft, lax, there is no tenderness. Bowel sounds positive. Extremities: There is no pedal edema. INVESTIGATIONS: WBC count is 7.7, hemoglobin 10.6, platelet count 236. Sodium 139, potassium 4.0, chloride 104, bicarb 26.7, BUN 36, creatinine 1.5, calcium is 8.8. Urinalysis showing protein of 30. Toxicology screen was negative on admission. Ultrasound of the kidney was done today and shows both kidneys are normal in size, increased cortical echogenicity, multiple bilateral renal cyst. No stone hydronephrosis. ASSESSMENT/PLAN 1. Chronic kidney disease 2. Hypertension 3. Depression 4. Diabetes mellitus 5. Mild anemia The patient has possible history of chronic kidney disease with bilateral renal cyst, normal-size kidney and minimal proteinuria, could be related to hypertensive or diabetic renal disease. He is not in fluid overload status, potassium is normal. Blood pressure is now better controlled. I will check his phosphorus with the next blood test, avoid any nephrotoxins, continue the same medications. Thank you for the consultation. I will follow the patient while he is in the hospital. MD ESPERANZA Brown/ASHLEY /11:02 AM /11:31 AM
--- NOTE | 2017-10-14 14:04 | HHI.PYPN ---
Subjective Chief Complaint: Depression Remarks Pt was seen and case discussed with nursing. Pt is enjoying this side of the hospital. He is less sarcastic today, he describes a depressed mood with passive suicidal ideation. However, not feeling hopeless, remains quite vague. Mental Status Examination Appearance: Disheveled (somewhat improved today) Consciousness: Alert Orientation: x4 Motor Activity: Normal gait, Other (remains a little bit psychomotor slowed) Speech: Slow (mild) Language: Adequate Fund of Knowledge: Adequate Attention and Concentration: Adequate Memory: Impaired (perhaps some mild impairment. Registration 3 out of 3 and recall 2 out of 3 at 3 minutes. Current president = "Ever" and gives the list of preceding presidents as Garry then Ashraf.) Mood: Sad, Other (depressed) Affect: Sad Thought Process & Associations: Other (somewhat slowed but linear) Thought Content: Appropriate Hallucination Type: None Delusion Type: None Suicidal Ideation: Yes (passive) Suicidal Plan: No Suicidal Intention: No Homicidal Ideation: No Homicidal Plan: No Homicidal Intention: No Insight: Fair Judgment: Adequate (fair) Results Labs Test 10/14/17 08:02 10/14/17 09:42 Blood Urea Nitrogen 26 MG/DL Creatinine 1.51 MG/DL Random Glucose 212 MG/DL Calcium Level 8.8 MG/DL Sodium Level 139 MEQ/L Potassium Level 4.0 MEQ/L Chloride Level 104 MEQ/L Carbon Dioxide Level 26.7 MEQ/L Anion Gap 8 MEQ/L Estimat Glomerular Filtration Rate 45 ML/MIN Urine Color YELLOW Urine Turbidity CLEAR Urine pH 5.5 Urine Specific [place] 1.008 Urine Protein 30 mg/dL Urine Glucose (UA) 1000 mg/dL Urine Ketones NEG mg/dL Urine Occult Blood NEG Urine Nitrite NEG Urine Bilirubin NEG Urine Urobilinogen LESS THAN 2.0 MG/DL Urine Leukocyte Esterase NEG Urine WBC LESS THAN 1 /hpf Urine Mucus FEW /lpf Microscopic Urinalysis Comment CULT NOT INDICATED Vitals/IOs Vital Signs Date Time Temp Pulse Resp B/P (MAP) Pulse Ox O2 Delivery O2 Flow Rate FiO2 10/14/17 06:03 98.2 72 17 147/70 (95) 96 10/10/17 16:06 Room Air Intake and Output 10/14/17 10/14/17 10/15/17 08:00 16:00 00:00 Intake Total 120 ml 240 ml Balance 120 ml 240 ml Assessment & Plan Problem List: (1) Major depressive disorder, recurrent severe without psychotic features ICD Codes: F33.2 - Major depressive disorder, recurrent severe without psychotic features Assessment & Plan Continue current treatment plan. Justification for Cont. Inpt. Patient would decompensate in a less restrictive setting. Request HC Surrog/Guard Advoc?: No Addison Sr DO Oct 14, 2017 14:04
[2017-10-14 18:00] VITALS: BP 137/60; PULSE 79; RESP 18; TEMP 98; O2SAT 99
[2017-10-14] MEDS: MIRTAZAPINE 15 MG TAB PO SCH (20:51)
[2017-10-15 06:26] VITALS: BP 148/69; PULSE 68; RESP 20; TEMP 97.6; O2SAT 97
[2017-10-15] MEDS: INSULIN ASPART SUPPLEMENTAL SCALE SQ SCH ×4 (08:00→21:00)
[2017-10-15] MEDS: TERAZOSIN HCL 5 MG CAP PO SCH (08:27)
[2017-10-15] MEDS: POLYETHYLENE GLYCOL 17 GM PKG PO SCH (08:27)
[2017-10-15] MEDS: METOPROLOL TARTRATE 25 MG TAB PO SCH ×2 (08:27→21:33)
[2017-10-15] MEDS: PRAVASTATIN SOD 20 MG TAB PO SCH (08:27)
[2017-10-15] MEDS: CHOLECALCIFEROL (VIT D3) 1000 UNIT TAB PO SCH (08:27)
[2017-10-15] MEDS: LIRAGLUTIDE SQ SCH (08:28)
[2017-10-15] MEDS: REMOVE OLD NICODERM (NICOTINE) PATCH T-DERMAL SCH (08:28)
[2017-10-15] MEDS: MULTIVITAMIN TAB PO SCH (08:28)
[2017-10-15] MEDS: INSULIN DETEMIR 100 UNITS/ML VIAL SQ SCH ×2 (08:28→21:36)
[2017-10-15] MEDS: RIVAROXABAN 20 MG TAB PO SCH (08:28)
[2017-10-15] MEDS: ACETAMINOPHEN 325 MG TAB PO PRN (08:37)
--- NOTE | 2017-10-15 10:44 | HHI.PYPN ---
Subjective Chief Complaint: Depression Remarks Patient seen and examined with nurse. Chart reviewed. Case discussed with nurse who reports the patient remains somewhat dysphoric and continues to articulate some passive thoughts of at times. On my examination today, the patient reports that he remains depressed although his mood is improved versus prior to admission. He does indeed admit to some occasional passive thoughts of but denies any active suicidal ideation. No psychotic symptoms. Sleep is somewhat poor, but the patient is noted to spend a fair amount of time dozing during the day; increased activity during daytime encouraged. Denies side effects from medications. Complains of chronic musculoskeletal pain, most prominent at the base of neck and shoulders. Review of Systems Except as stated in HPI: all other systems reviewed are Neg Mental Status Examination Appearance: Appropriate Consciousness: Alert Orientation: x4 Motor Activity: Other (no motoric abnormalities noted, perhaps a little psychomotor slowed still) Speech: Unremarkable Language: Adequate Fund of Knowledge: Adequate Attention and Concentration: Adequate Memory: Unremarkable Mood: Other (depressed, improving slowly) Affect: Blunt Thought Process & Associations: Other (somewhat slowed but linear) Thought Content: Appropriate Hallucination Type: None Delusion Type: None Suicidal Ideation: No Suicidal Plan: No Suicidal Intention: No Homicidal Ideation: No Homicidal Plan: No Homicidal Intention: No Insight: Fair Judgment: Adequate (fair) Results Labs Item Value Date Time Sodium Level 139 MEQ/L 10/14/17 0802 Potassium Level 4.0 MEQ/L 10/14/17 0802 Chloride Level 104 MEQ/L 10/14/17 0802 Carbon Dioxide Level 26.7 MEQ/L 10/14/17 0802 Blood Urea Nitrogen 26 MG/DL H 10/14/17 0802 Creatinine 1.51 MG/DL H 10/14/17 0802 Estimat Glomerular Filtration Rate 45 ML/MIN L 10/14/17 0802 Random Glucose 212 MG/DL H # 10/14/17 0802 Phosphorus Level 3.4 MG/DL 10/15/17 0811 Last Impressions Renal Ultrasound 10/14/17 0000 Signed Impressions: Service Date/Time: Saturday, October 14, 2017 08:29 - CONCLUSION: 1. Increased cortical echogenicity with preserved size may be indicative of acute medical renal disease bilaterally. 2. Multiple bilateral renal cortical cysts with the largest cysts on each side described above. 3. Otherwise negative. No stones or hydronephrosis. Tenzin Domingo MD Labs and study impression reviewed. Vitals/IOs Vital Signs Date Time Temp Pulse Resp B/P (MAP) Pulse Ox O2 Delivery O2 Flow Rate FiO2 10/15/17 06:26 97.6 68 20 148/69 (95) 97 Intake and Output 10/15/17 10/15/17 10/16/17 08:00 16:00 00:00 Intake Total 120 ml Balance 120 ml Assessment & Plan Problem List: (1) Major depressive disorder, recurrent severe without psychotic features ICD Codes: F33.2 - Major depressive disorder, recurrent severe without psychotic features Assessment & Plan Mood is slowly improving with mirtazapine. Titrate mirtazapine to 30 mg at bedtime for mood. Hospitalist and nephrology input noted and appreciated. Continue to monitor on the inpatient unit. Continue other medications and care as ordered. Justification for Cont. Inpt. Med changes. Risk for decompensation in less restrictive environment. Discharge Planning Anticipate discharge by the end of the week. Request HC Surrog/Guard Advoc?: No Aayush Rubin MD Oct 15, 2017 10:44
[2017-10-15] MEDS: LIDOCAINE HCL 5% PATCH T-DERMAL SCH (11:00)
--- NOTE | 2017-10-15 17:14 | HHI.PR ---
Objective Vitals Vital Signs Date Time Temp Pulse Resp B/P (MAP) Pulse Ox O2 Delivery O2 Flow Rate FiO2 10/15/17 06:26 97.6 68 20 148/69 (95) 97 10/14/17 18:00 98.0 79 18 137/60 (85) 99 I/O 10/14/17 10/14/17 10/14/17 10/15/17 10/15/17 10/15/17 07:00 15:00 23:00 07:00 15:00 23:00 Intake Total 240 ml 360 ml 840 ml 120 ml Output Total 2 ml Balance 240 ml 360 ml 838 ml 120 ml Intake Oral 240 ml 360 ml 840 ml 120 ml Output Urine Total 2 ml # Voids 1 2 # Bowel Movements 0 Result Diagram: 10/11/17 0725 10/14/17 0802 Baldev Kingsley MD Oct 15, 2017 17:14
[2017-10-15 18:05] VITALS: BP 125/58; PULSE 57; RESP 18; TEMP 97.8; O2SAT 97
--- NOTE | 2017-10-15 20:35 | HHI.PR ---
Subjective Remarks Patient c/o back pain in the right lower side of his back. Denies cp/sob. Denies dysuria, hematuria. Worst with movement, he is unable to sit well. Nurse states he has not complained of back pain to her. denies urine or bowel incontinence Blood sugars uncontrolled. Objective Vitals Vital Signs Date Time Temp Pulse Resp B/P (MAP) Pulse Ox O2 Delivery O2 Flow Rate FiO2 10/15/17 18:05 97.8 57 18 125/58 (80) 97 10/15/17 06:26 97.6 68 20 148/69 (95) 97 I/O 10/14/17 10/14/17 10/14/17 10/15/17 10/15/17 10/15/17 07:00 15:00 23:00 07:00 15:00 23:00 Intake Total 240 ml 360 ml 840 ml 120 ml 720 ml Output Total 2 ml Balance 240 ml 360 ml 838 ml 120 ml 720 ml Intake Oral 240 ml 360 ml 840 ml 120 ml 720 ml Output Urine Total 2 ml # Voids 1 2 2 # Bowel Movements 0 Result Diagram: 10/11/17 0725 10/14/17 0802 Imaging Last Impressions Renal Ultrasound 10/14/17 0000 Signed Impressions: Service Date/Time: Saturday, October 14, 2017 08:29 - CONCLUSION: 1. Increased cortical echogenicity with preserved size may be indicative of acute medical renal disease bilaterally. 2. Multiple bilateral renal cortical cysts with the largest cysts on each side described above. 3. Otherwise negative. No stones or hydronephrosis. Tenzin Domingo MD Objective Remarks AAO, nad Clear lungs Pain on palpation of right paraspinal muscles on the lumbar region. Muscle strength 5/5 in all extremities with intact sensation. Patellar reflexes +2 in BL lower extremities. Medications and IVs Current Medications Medications (Trade) Dose Ordered Sig/Robert Route Start Time Stop Time Status Last Admin (Pravachol) 20 mg DAILY PO 10/11/17 09:00 10/15/17 08:27 (Lopressor) 25 mg BID PO 10/11/17 09:00 10/15/17 08:27 (Miralax) 17 gm DAILY PO 10/11/17 09:00 10/15/17 08:27 (Xarelto) 20 mg DAILY PO 10/11/17 09:00 10/15/17 08:28 (Hytrin) 5 mg DAILY PO 10/11/17 09:00 10/15/17 08:27 Patient Own Medication PT OWN MED: (Liraglutide ... DAILY SQ 10/12/17 09:00 (D50w (Vial) Inj) 50 ml UNSCH PRN IV PUSH 10/10/17 21:15 (Glucagon Inj) 1 mg UNSCH PRN OTHER 10/10/17 21:15 (Tylenol) 650 mg Q4H PRN PO 10/10/17 21:15 10/15/17 08:37 (Milk Of Magnesia Liq) 30 ml DAILY PRN PO 10/10/17 21:15 (Mag-Al Plus Susp Liq) 30 ml Q6H PRN PO 10/10/17 21:15 (Habitrol 21 Mg Patch.24 Hr) 1 patch DAILY PRN T-DERMAL 10/10/17 21:15 (Catapres) 0.1 mg Q8HR PRN PO 10/10/17 21:30 10/11/17 05:42 Miscellaneous Information 1 DAILY T-DERMAL 10/11/17 09:00 (Theragran) 1 tab DAILY PO 10/11/17 09:00 10/15/17 08:28 (Atarax) 25 mg Q6H PRN PO 10/10/17 22:45 10/12/17 21:11 (Vitamin D3) 2,000 units DAILY PO 10/12/17 09:00 10/15/17 08:27 (Prinivil) 40 mg DAILY PO 10/13/17 09:00 Future Hold 10/13/17 09:18 (NovoLOG INJ) 2 units TIDAC SQ 10/13/17 08:00 Future Hold 10/13/17 16:18 (NovoLOG SUPPLEMENTAL SCALE) 1 ACHS SLIDING SCALE SQ 10/13/17 12:00 10/15/17 17:00 (Norvasc) 10 mg DAILY PO 10/14/17 09:00 10/15/17 08:27 (Levemir Inj) 22 units Q12HR SQ 10/14/17 09:00 10/15/17 08:28 (Remeron) 30 mg HS PO 10/15/17 21:00 (Lidoderm 5% Patch.12 Hr) 1 patch DAILY T-DERMAL 10/15/17 11:00 10/15/17 11:00 Miscellaneous Information 1 Q24H T-DERMAL 10/15/17 21:00 A/P Assessment and Plan 77 y/o Male who came to ER as [place], with history of Depression and attempted suicide 3 weeks ago by cutting his wrist mid with ongoing suicidal ideations asked to be seen in consultation by hospitalist service for medical management of osteoarthritis, atrial fibrillation and diabetes. Dementia Depression Suicidal ideation - Management per psychiatric team - encouraged ambulation. PT with no home PT recommendations. Atrial fibrillation - rate controlled - Continue patient on metoprolol 25 mg by mouth twice a day and Xarelto 20mg daily - monitor HR Hypertension - Patient on Lisinopril 40mg daily, Norvasc 5mg daily, as well as metoprolol as stated above. RAFAEL Inhibitor held due to FAUSTINA. Norvasc dose increased to 10 mg daily. - continue to monitor BP and adjust treatment accordingly - 10/15 BP stable, continue management as above. FAUSTINA on suspected CKD. However noted worsening kidney function. Check UA, do US kidney, consult nephrology - unknown creatinine baseline - Hold ACEI - encourage fluid intake - avoid nephrotoxic agents - may need to consider decreased Xarelto dose - 10/15 Nephrology consulted. Appreciate recommendations. Renal ultrasound shows signs consistent with medical renal disease. No hydronephrosis seen. - Patient has h/o CKD with renal cysts could be due to hypertension and/or diabetes. Creatinine stable and slightly improved. Continue to monitor BUN/ Creatinine. DM, type 2, uncontrolled A1c 8.9 - accucheck and low dose ISS - BS severely elevated and running 200s. Increase Levemir to 25U BID. Resume preprandial insulin at 5 units SQ TIDAC - HgbA1c 8.9 Vitamin D deficiency - Patient's vitamin D level 20.4 - Begin patient on by mouth vitamin D supplementation - patient will need to follow up with PCP for monitoring Low back pain - Likely musculoskeletal. Will check luumbar spine x ray. Will also Rx Flexeril and Percocet. DVT prophylaxis - patient is ambulatory - on Xarelto Discussed with patient, nurse Baldev Kingsley MD Oct 15, 2017 20:35
[2017-10-15] MEDS: REMOVE OLD LIDOCAINE PATCH T-DERMAL SCH (21:00)
[2017-10-15] MEDS: MIRTAZAPINE 15 MG TAB PO SCH (21:34)
--- NOTE | 2017-10-15 23:01 | RADRPT ---
EXAM DATE/TIME: 10/15/2017 20:41 [facility] COMPARISON: No previous studies available for comparison. INDICATIONS : Lower back since this morning. No prior trauma. Patient woke up with the pain. MEDICAL HISTORY : Dementia. Arthritis. Seizures. HTN. Afib. Sleep apena. Diabetes. Depression. SURGICAL HISTORY : Right ankle surgery. Right rotator cuff repair. ENCOUNTER: Initial ACUITY: 1 day PAIN SCORE: 6/10 LOCATION: Lower back. FINDINGS: There is normal alignment of the vertebral bodies of the lumbar spine and preservation of vertebral b elizabeth height. Endplate sclerosis at L4-5 with anterior vacuum phenomenon and disc space narrowing. Mo derate to space narrowing at L5-S1 with nonbridging anterior paravertebral ossification. Mild curvat ure of the lumbar spine convex to the left. Advanced hypertrophic changes in the posterior elements L4-S1. Vascular calcification the aorta and iliac vessels. CONCLUSION: 1. No evidence of compression deformity or spondylolisthesis. 2. Moderate severity discogenic degenerative changes in the lower lumbar spine. Enmanuel Rizvi MD on October 15, 2017 at 22:58 Board Certified Radiologist. This report was verified electronically.
[2017-10-16 05:50] VITALS: BP 173/84; PULSE 90; RESP 20; TEMP 98.2; O2SAT 98
[2017-10-16] MEDS: INSULIN ASPART 1,000 UNITS/10 ML VIAL SQ SCH ×3 (08:00→17:00)
[2017-10-16] MEDS: INSULIN ASPART SUPPLEMENTAL SCALE SQ SCH ×4 (08:00→20:53)
[2017-10-16] MEDS: REMOVE OLD NICODERM (NICOTINE) PATCH T-DERMAL SCH (09:00)
[2017-10-16] MEDS: LIRAGLUTIDE SQ SCH (09:00)
[2017-10-16] MEDS: INSULIN DETEMIR 100 UNITS/ML VIAL SQ SCH ×2 (09:00→20:52)
[2017-10-16] MEDS: POLYETHYLENE GLYCOL 17 GM PKG PO SCH (09:42)
[2017-10-16] MEDS: CHOLECALCIFEROL (VIT D3) 1000 UNIT TAB PO SCH (09:42)
[2017-10-16] MEDS: METOPROLOL TARTRATE 25 MG TAB PO SCH ×2 (09:42→20:52)
[2017-10-16] MEDS: PRAVASTATIN SOD 20 MG TAB PO SCH (09:43)
[2017-10-16] MEDS: RIVAROXABAN 20 MG TAB PO SCH (09:43)
[2017-10-16] MEDS: TERAZOSIN HCL 5 MG CAP PO SCH (09:43)
[2017-10-16] MEDS: MULTIVITAMIN TAB PO SCH (09:43)
[2017-10-16] MEDS: LIDOCAINE HCL 5% PATCH T-DERMAL SCH (09:47)
--- NOTE | 2017-10-16 11:25 | HHI.PR ---
Subjective Remarks still have pain in his back - for couple days - only started in hospital around thoracic area no falls today is better better when he bends down also better with pain patch pain is worse on pressing no pleuritic nature worried about hx of tick bite that happened months ago but denies any joint pains/ fever/ night sweats no other symptoms Objective Vitals Vital Signs Date Time Temp Pulse Resp B/P (MAP) Pulse Ox O2 Delivery O2 Flow Rate FiO2 10/16/17 05:50 98.2 90 20 173/84 (113) 98 173/84 (113) 10/15/17 18:05 97.8 57 18 125/58 (80) 97 I/O 10/15/17 10/15/17 10/15/17 10/16/17 10/16/17 10/16/17 07:00 15:00 23:00 07:00 15:00 23:00 Intake Total 120 ml 1440 ml 0 ml 240 ml Balance 120 ml 1440 ml 0 ml 240 ml Intake Oral 120 ml 1440 ml 0 ml 240 ml # Voids 2 5 2 Result Diagram: 10/14/17 0802 Objective Remarks no murmur right shoulder posterior site tick bite area- no lesion, just dry scaly skin A/P Assessment and Plan Impression: back pain- more at right paraspinal thoracic area- of a few days ago; muscular in eitology on exam depression htn dm- Home meds: Novolog 4 units before breakfast, 6units before lunch, 6 units before dinner; lantus 28units qhs afib chronic anticoagulation on xarelto ckd had enlarged thyroid and had biopsy, was taking thyroid meds before at [facility] ; TSH 10/11/17 wnl sepsis about a year ago at [facility] - prolonged hospitalization, then moved with son in [place], and now back to [place] home since aug 2017 with tick bite in [facility] in March 2017- son squeezed tick off and never went to doctor Plan: resume same meds for now lyme serology for now medically cleared Harpal Robin MD Oct 16, 2017 11:25
[2017-10-16 12:05] LABS: BICARBONATE 25.8 MEQ/L (21.0-32.0); POTASSIUM 4.1 MEQ/L (3.5-5.1)
--- NOTE | 2017-10-16 12:40 | HHI.PYPN ---
Subjective Chief Complaint: Depression Remarks Patient seen and examined with nurse. Chart reviewed. Case discussed with counselor and occupational therapist in treatment team. Per nursing staff, no behaviors overnight. No SI or HI. On my examination today, the patient seems to be in better spirits than in previous days. Considerably more affective reactivity and the patient smiles appropriately at times. The patient himself feels improved with respect to his mood. He denies any suicidal or homicidal ideation. No psychotic symptoms. Denies side effects from medications. No physical complaints. Back pain improved with lidocaine patch. Patient hopeful for discharge soon. Review of Systems Except as stated in HPI: all other systems reviewed are Neg Mental Status Examination Appearance: Appropriate Consciousness: Alert Orientation: x4 Motor Activity: Other (no motoric abnormalities noted, perhaps a little psychomotor slowed still) Speech: Unremarkable Language: Adequate Fund of Knowledge: Adequate Attention and Concentration: Adequate Memory: Unremarkable Mood: Other (mood is improving) Affect: Appropriate (fairly full and reactive) Thought Process & Associations: Intact (more spontaneous today), Logical, Linear Thought Content: Appropriate Hallucination Type: None Delusion Type: None Suicidal Ideation: No Suicidal Plan: No Suicidal Intention: No Homicidal Ideation: No Homicidal Plan: No Homicidal Intention: No Insight: Fair Judgment: Adequate (fair) Results Labs Test 10/16/17 10:47 Blood Urea Nitrogen 25 MG/DL Creatinine 1.61 MG/DL Random Glucose 355 MG/DL Calcium Level 8.9 MG/DL Sodium Level 139 MEQ/L Potassium Level 4.1 MEQ/L Chloride Level 103 MEQ/L Carbon Dioxide Level 25.8 MEQ/L Anion Gap 10 MEQ/L Estimat Glomerular Filtration Rate 42 ML/MIN Labs reviewed. GFR fairly stable. Vitals/IOs Vital Signs Date Time Temp Pulse Resp B/P (MAP) Pulse Ox O2 Delivery O2 Flow Rate FiO2 10/16/17 05:50 98.2 90 20 173/84 (113) 98 173/84 (113) Intake and Output 10/16/17 10/16/17 10/17/17 08:00 16:00 00:00 Intake Total 0 ml 480 ml Balance 0 ml 480 ml Assessment & Plan Problem List: (1) Major depressive disorder, recurrent severe without psychotic features ICD Codes: F33.2 - Major depressive disorder, recurrent severe without psychotic features Assessment & Plan Mood is improving with Remeron. Continue Remeron 30 mg at bedtime. Hospitalist input noted and appreciated, and I see that the patient has been medically cleared by the hospitalist. Continue other medications and care as ordered. Justification for Cont. Inpt. Final discharge planning. Discharge Planning Anticipate discharge tomorrow, Sunday. Case discussed with counselor. Request HC Surrog/Guard Advoc?: No Aayush Rubin MD Oct 16, 2017 12:40
--- NOTE | 2017-10-16 15:44 | PD.TTN ---
Patient Problems 1. Discharge planning 2. Medication compliance 3. Knowledge deficit 4. Lack of coping skills Progress Toward Goals Provider Present: Dr. Ayesha Rubin Provider Input: 10/16/2017 per doctor patient will be monitor for medication adjustment and if labs return clear possible dc within the next day Dr. Rubin's treatment team met to discuss patient's treatment plan, discharge and medication. Patient was started on medication for his depressioin. Once patient stablizes will be discharged home. OT evaluation has been ordered. Nurse(s) Present: GALINA Moss Nurse(s) Input: 10/16/2017; patient is eating and taking his medication, no behavior Patient's nurse Any reports patient is seclusive, depressed, denies suicidal and homicidal ideation. experiencing sleep distrubance. Slow to engage. No behavioral issues Psychiatric Counselors Present: GORGE Serrano Psych Therapist Input: 10/16/2017 patient is denies suicidal ideation, and has a brighter affect with an uplifted mood; patient will be instructed to go directly to the [facility] clinic for outpatient appointment schedule; will be dc home with transportation Patient seen today. Patient presents depressed, sad, affect appropriate. Patient states he is still suicidal. Patient denies homicidal ideation. Patient makes fair eye contact. Patient reports not sleeping well. Patient is slow to engage and was encouraged to get a shower. Patient is not participating in any groups. Patient does not present with internal stimulation or with any delusional content. [facility]. pateint was encourage to participate in groups and to reach out to his family. Group Spec/RT/OT/CHRISTIANSON Present: Sean Pereira, ASMY Group Spec/RT/OT/CHRISTIANSON Input: 10/16/2017 Patient has been socially active and displays a more pleasant approproachable mood. Patient is new. Patient has complex personnal issues. Has OT evaluation ordered. Patient attends groups. Documentation Scribe: GORGE Serrano Sandra LMHC Oct 16, 2017 15:44
--- NOTE | 2017-10-16 17:02 | HHI.NPPN ---
Subjective History of Present Illness 77-year-old male with past medical history of depression, hypertension, hyperlipidemia and diabetes mellitus, prostatic hypertrophy, possibly chronic kidney disease, was admitted with a diagnosis of depression in the psych unit. I was called to see the patient because of elevated BUN and creatinine. Additional Remarks Patient is alert, no SOB, no nausea or vomiting. Objective Data Data 10/16/17 10/17/17 19:00 07:00 Intake Total 480 ml Balance 480 ml Intake Oral 480 ml Vital Signs Date Time Temp Pulse Resp B/P (MAP) Pulse Ox O2 Delivery O2 Flow Rate FiO2 10/16/17 05:50 98.2 90 20 173/84 (113) 98 173/84 (113) 10/15/17 18:05 97.8 57 18 125/58 (80) 97 -: 10/16/17 1047 Physical Exam General Appearance: No Acute Distress, Comfortable Eyes Eye Exam: Pupils Equal Throat Throat Exam: Oral Mucosa [place] & Moist Neck Neck Exam: Neck Supple Pulmonary Resp Exam: Clear Bilaterally, Breath Sounds Equal, No Distress Gastrointestinal/Abdomen GI Exam: Soft, Non-Tender, Bowel Sounds Present, Non-Distended Extremeties Extremities Exam: No Edema Neurologic Neuro Exam: Alert, Awake, Oriented Psychiatric Psych Exam: Appropriate Responses Assessment/Plan Assessment Summary: FAUSTINA/Acute Renal Failure, Proteinuria, Hypertension, Diabetes Mellitus, CKD Stage III Problem List: (1) Major depressive disorder, recurrent severe without psychotic features ICD Codes: F33.2 - Major depressive disorder, recurrent severe without psychotic features (2) Stage 3 chronic kidney disease ICD Codes: N18.3 - Chronic kidney disease, stage 3 (moderate) (3) Acute kidney injury ICD Codes: N17.9 - Acute kidney failure, unspecified (4) Hypertension ICD Codes: I10 - Essential (primary) hypertension (5) Diabetes mellitus ICD Codes: E11.9 - Type 2 diabetes mellitus without complications Plan Patient has mild proteinuria. Renal U/S showing increased echogenicity and bilateral cysts. Most likely has chronic kidney, possibly due to Hypertensive or Diabetic renal disease. Also there is possibility of Poly cystic disease. Now the Creatinine increase to 1.6. Told to drink more fluid, will follow. Dina Schroeder MD Oct 16, 2017 17:02
[2017-10-16 18:10] VITALS: BP 144/66; PULSE 72; RESP 20; TEMP 98.1; O2SAT 98
[2017-10-16] MEDS: MIRTAZAPINE 15 MG TAB PO SCH (20:52)
[2017-10-16] MEDS: REMOVE OLD LIDOCAINE PATCH T-DERMAL SCH (21:00)
[2017-10-17 05:15] VITALS: BP 130/63; PULSE 68; RESP 18; TEMP 98.3; O2SAT 96
[2017-10-17] MEDS: INSULIN ASPART 1,000 UNITS/10 ML VIAL SQ SCH ×3 (07:58→16:45)
[2017-10-17] MEDS: INSULIN ASPART SUPPLEMENTAL SCALE SQ SCH ×3 (07:58→16:45)
[2017-10-17] MEDS: RIVAROXABAN 20 MG TAB PO SCH (08:12)
[2017-10-17] MEDS: TERAZOSIN HCL 5 MG CAP PO SCH (08:12)
[2017-10-17] MEDS: CHOLECALCIFEROL (VIT D3) 1000 UNIT TAB PO SCH (08:12)
[2017-10-17] MEDS: METOPROLOL TARTRATE 25 MG TAB PO SCH (08:12)
[2017-10-17] MEDS: MULTIVITAMIN TAB PO SCH (08:12)
[2017-10-17] MEDS: PRAVASTATIN SOD 20 MG TAB PO SCH (08:13)
[2017-10-17] MEDS: LIRAGLUTIDE SQ SCH (08:13)
[2017-10-17] MEDS: POLYETHYLENE GLYCOL 17 GM PKG PO SCH (08:13)
[2017-10-17] MEDS: INSULIN DETEMIR 100 UNITS/ML VIAL SQ SCH (08:18)
[2017-10-17] MEDS: LIDOCAINE HCL 5% PATCH T-DERMAL SCH (08:23)
[2017-10-17] MEDS: REMOVE OLD NICODERM (NICOTINE) PATCH T-DERMAL SCH (08:24)
[2017-10-17] MEDS ORDERED: AMLO10 PO (14:19)
[2017-10-17] MEDS ORDERED: NOVOLOGP2 SQ (14:19)
[2017-10-17] MEDS ORDERED: LEVEMIR SQ (14:19)
[2017-10-17] MEDS ORDERED: MIRTA15 PO (14:19)
[2017-10-17] MEDS ORDERED: LISI40TA PO (14:19)
[2017-10-17] MEDS ORDERED: TERA5CAP3 PO (14:19)
[2017-10-17] MEDS ORDERED: METO25TA3 PO (14:19)
[2017-10-17] MEDS ORDERED: CHOL1000 PO (14:19)
[2017-10-17] MEDS ORDERED: PRAV20TA PO (14:19)
[2017-10-17] MEDS ORDERED: XARE20TA PO (14:19)
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
[2017-10-17] MEDS ORDERED: LIDO1ADH4 T-DERMAL (14:57)
[2017-10-18] MEDS ORDERED: RIVAROXABAN 15 MG TAB PO SCH (09:00)
== END 2017-10-17 19:23 | disposition home or self-care (01) | DRG 885 ==
LOC: NEPJ 15:47 → NEDA 21:13 → H260 22:48 → H4EA 10-13 23:00
PROVIDERS: ADMIT Psychiatry & Neurology Psychiatry; ATTEND Psychiatry & Neurology Psychiatry
DX: F33.2 Major depressive disorder, recurrent severe without psychotic features (principal); N17.9 Acute kidney failure, unspecified; F03.90 Unspecified dementia, unspecified severity, without behavioral disturbance, psychotic disturbance, mood disturbance, and anxiety; E11.22 Type 2 diabetes mellitus with diabetic chronic kidney disease; R45.851 Suicidal ideations; E11.65 Type 2 diabetes mellitus with hyperglycemia; I48.91 Unspecified atrial fibrillation; M19.90 Unspecified osteoarthritis, unspecified site; H91.90 Unspecified hearing loss, unspecified ear; N40.0 Benign prostatic hyperplasia without lower urinary tract symptoms; E78.5 Hyperlipidemia, unspecified; I12.9 Hypertensive chronic kidney disease with stage 1 through stage 4 chronic kidney disease, or unspecified chronic kidney disease; D64.9 Anemia, unspecified; E55.9 Vitamin D deficiency, unspecified; N18.3 Chronic kidney disease, stage 3 (moderate); G89.29 Other chronic pain; G47.30 Sleep apnea, unspecified; F41.9 Anxiety disorder, unspecified; M54.5 Low back pain; M79.1 Myalgia; Z91.5 Personal history of self-harm; Z79.01 Long term (current) use of anticoagulants
CPT/HCPCS: 72100; 76775; 80048; 80053; 80061; 80307; 81001; 82306; 82607; 82948; 83036; 84100; 84443; 85025; 87801; 96372; J1815